=== PATIENT | male | born 1960 | race Caucasian/White ===

== ENCOUNTER 2020-08-08 18:05 | Inpatient (IN) | payer OTHER ==
[~2020-08-08] VITALS: Ht 170.2 cm; Wt 61.0 kg
[2020-08-08] MEDS ORDERED: cefTRIAXone 1 GM in NS 55 ML IV ONE (18:15)
[2020-08-08] MEDS ORDERED: Azithromycin 500 MG in NS 275 ML IVPB ONE (18:15)
--- NOTE | 2020-08-08 18:15 | NUR ---
ED Nurse Note: pt GORGEMeg MARGOTH RA 29 from [facility] for AMS and respiratory distress. 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 SNF staff report that at baseline, pt is responsive to name. pt presents to [facility] agonally breathing with bag mask ventilation by EMS, pt is satting in the 80's, pt is non-responsive to pain, touch or voice, eyes are open and pupils do not track. pt appears to have blood on tongue and inside of mouth visualized during intubation by ERMD. pt has a 24' IV line to L upper arm but it was not flushing so RN removed it. pt has bandages to bilat feet, skin is hot to touch
[2020-08-08] MEDS ORDERED: ALBUTEROL2.5 MG/3 M INH (18:28)
[2020-08-08] MEDS ORDERED: DEPAKOTE SPRIN125 MG PO (18:28)
[2020-08-08] MEDS ORDERED: ACETAMINOPHEN120 MG PO (18:28)
[2020-08-08] MEDS ORDERED: BISACODYL5 MG RECTAL (18:28)
[2020-08-08] MEDS ORDERED: MULTIVITAMINS1 EAC8 ORAL (18:28)
--- NOTE | 2020-08-08 18:53 | Emergency Room Report ---
History of Present Illness General Chief Complaint: Altered Mental Status Source: Medical Record, EMS, PMD Present Illness HPI Patient presents via EMS with respiratory distress. Little history is available. Paramedics assisting ventilations. Patient extremely tachypneic and unresponsive. Patient unable to answer questions. After discussion with patient's primary physician they were attempting to place the patient on hospice care. He has advanced dementia and there are many bioethics consults that were obtained. The POLST still states full treatment. Allergies: Coded Allergies: No Known Allergies (Unverified , 08/08/20) COVID-19 Screening Contact w/high risk pt: No Experienced COVID-19 symptoms?: Yes COVID-19 Testing performed BARGE CAPTAIN: No Patient History Limited by: medical condition Past Medical History: see triage record, old chart reviewed Social History Narrative SNF Reviewed Nursing Documentation: PMH: Agreed; PSxH: Agreed Nursing Documentation-PMH Hx Asthma: Yes History Of Psychiatric Problem: Yes - schizoaffective disorder, Review of Systems All Other Systems: limited Physical Exam Vital Signs Date Time Temp Pulse Resp B/P (MAP) Pulse Ox O2 Delivery O2 Flow Rate FiO2 08/08/20 18:09 97.5 143 16 96/55 (69) 82 Ambu-Bag 08/08/20 18:41 100 Sp02 EP Interpretation: reviewed, abnormal - Interpreted as low by me General Appearance: severe distress, other - Unresponsive Head: normocephalic, atraumatic Eyes: bilateral eye PERRL, bilateral eye other - Left gaze ENT: dry mucus membranes - Old blood on tongue Neck: supple Respiratory: respiratory distress, crackles, rales Cardiovascular #1: no edema, tachycardia Cardiovascular #2: 2+ radial (L) Gastrointestinal: soft, non-distended, decreased bowel sounds Genitourinary: normal inspection Musculoskeletal: decreased range of motion Neurologic: motor weakness - Generalized, other - Unresponsive Psychiatric: other - Stupor Skin: Decubitus/Ulcer - Stage II right gluteal area, warm/dry, mottled Procedures Critical Care Time Critical Care Time Total Critical Care Time: 90 min bedside evaluation and treatment excludes procedures (EKG, intubation). Reason for critical care: Respiratory failure, severe sepsis, discussion with private doctor in admitting physician, repeat evaluations, elevated troponin, hyponatremia, metabolic acidosis Possible complications: hypotension, hypertension, AR, shock, arrhythmias, metabolic acidosis, end organ damage, respiratory failure. Interventions: Intubation, fluid resuscitation, coverage with antibiotics, repeat evaluations, discussion with PMD, discussion with admitting physician Course: Patient presented in respiratory failure. Immediate intubation. Fluid resuscitation and coverage with antibiotics. Discussion with PMD regarding attempts at placement on hospice. Discussion with respiratory therapy regarding ventilator settings and titration of oxygen. Called with positive troponin. Aspirin administered. Patient somewhat hypotensive and unable to receive metoprolol or nitrates. Blood pressure decreased. Patient deemed to be dry. Repeat bolus. Improvement in blood pressure and heart rate. Discussion with admitting physician. Admitting physician examined patient in emergency department. Repeat discussion. Consultations: nursing staff, EMS, respiratory, PMD, admitting physician Performed by: Dr. Mosquera Tolerated well condition = critical Intubation Intubation : Consent: Emergent Intubation Method: orotracheal Tube Size (cm): 7.5 Medications: Other - none Breath Sounds after Intubation: equal Intubation Complications: no complications Post Intubation Xray: Yes Attempts: One Patient Tolerated: Well Complications: None Medical Decision Making Diagnostic Impression: Primary Impression: Respiratory failure Qualified Codes: J96.01 - Acute respiratory failure with hypoxia; J96.02 - Acute respiratory failure with hypercapnia Additional Impressions: NSTEMI (non-ST elevated myocardial infarction) High anion gap metabolic acidosis Hypernatremia Lactic acid acidosis Pneumonia Qualified Codes: J18.9 - Pneumonia, unspecified organism Acute renal failure Qualified Codes: N17.9 - Acute kidney failure, unspecified ER Course Patient presents with respiratory distress. Differential includes severe sepsis, pneumonia, COVID-19, acute myocardial infarction amongst others. Patient required immediate intubation. Patient in extreme distress. Sepsis resuscitation begun. Antibiotics administered for pneumonia and possible COVID- 19. Patient placed on monitoring manager. Isolation precautions. External jugular access. Initial vent settings ordered. Discussed with Dr. Mendez. States patient was supposed to be hospice. He also states that multiple bioethics consults were obtained. However CODE STATUS still full. He had advised retirement staff not to transport the patient but they did. Labs with hypernatremia, low white count with left shift, anemia, acute renal failure, elevated C-reactive protein and other COVID-19 associated laboratory findings. COVID-19 test initially negative. Chest x-ray with appropriate endotracheal tube placement. Bilateral infiltrates. Called with elevated troponin. Aspirin administered. Review of EKG without evidence of STEMI. Patient hypotensive. Repeat bolus administered. Heart rate improved. Antibiotics have been administered. Sepsis reevaluation 1954. Patient with metabolic acidosis. Adequate oxygenation. Discussed with Dr. Silveira. Dr. Silveira examined patient in the emergency department. Patient somewhat improved however prognosis poor. Patient admitted to ICU. Laboratory Tests Test 08/08/20 18:14 08/08/20 18:45 08/08/20 19:00 08/08/20 19:16 Arterial Blood pH 7.166 (7.350-7.450) Arterial Blood Partial Pressure CO2 30.3 mmHg (35.0-45.0) L Arterial Blood Partial Pressure O2 210.8 mmHg (75.0-100.0) H Arterial Blood HCO3 10.7 mmol/L (22.0-26.0) *L Arterial Blood Oxygen Saturation 98.2 % (95-100) Arterial Blood Base Excess -16.5 (-2-2) *L Paxton Test Positive Prothrombin Time 19.5 SEC (9.30-11.50) H Prothrombin Time INR 1.9 (0.9-1.1) H Activated Partial Thromboplast Time 57 SEC (23-33) H Sodium Level 170 MMOL/L (136-145) *H Potassium Level 4.4 MMOL/L (3.5-5.1) Chloride Level 135 MMOL/L (98-107) H Carbon Dioxide Level 15 MMOL/L (21-32) L Anion Gap 20 mmol/L (5-15) H Blood Urea Nitrogen 66 mg/dL (7-18) H Creatinine 3.1 MG/DL (0.55-1.30) H Estimated Glomerular Filtration Rate 20.7 mL/min (>60) Glucose Level 76 MG/DL (74-106) Lactic Acid Level 11.40 mmol/L (0.4-2.0) H Calcium Level 7.6 MG/DL (8.5-10.1) L Magnesium Level 1.9 MG/DL (1.8-2.4) Ferritin 2223 NG/ML (8-388) H Total Bilirubin 2.3 MG/DL (0.2-1.0) H Direct Bilirubin 1.6 MG/DL (0.0-0.3) H Aspartate Amino Transferase (AST) 252 U/L (15-37) H Alanine Aminotransferase (ALT) 49 U/L (12-78) Alkaline Phosphatase 67 U/L (46-116) Lactate Dehydrogenase 404 U/L (81-234) H Total Creatine Kinase 49 U/L (26-308) Creatine Kinase MB 1.8 NG/ML (0.0-3.6) Creatine Kinase MB Relative Index 3.6 Troponin I 0.335 ng/mL (0.000-0.056) 0.337 ng/mL (0.000-0.056) C-Reactive Protein, Quantitative 34.2 mg/dL (0.00-0.90) H Pro-B-Type Natriuretic Peptide 98682 pg/mL (0-125) H Total Protein 4.1 G/DL (6.4-8.2) L Albumin 1.3 G/DL (3.4-5.0) L Globulin 2.8 g/dL Albumin/Globulin Ratio 0.5 (1.0-2.7) L Lipase 155 U/L (73-393) Urine Color Yellow Urine Appearance Cloudy Urine pH 6 (4.5-8.0) Urine Specific Melvin 1.010 (1.005-1.035) Urine Protein 3+ (NEGATIVE) H Urine Glucose (UA) Negative (NEGATIVE) Urine Ketones Negative (NEGATIVE) Urine Blood 4+ (NEGATIVE) H Urine Nitrite Positive (NEGATIVE) H Urine Bilirubin 1+ (NEGATIVE) H Urine Ictotest Positive (NEGATIVE) Urine Urobilinogen 1 MG/DL (0.0-1.0) H Urine Leukocyte Esterase 1+ (NEGATIVE) H Urine RBC 5-10 /HPF (0 - 0) H Urine WBC 0-2 /HPF (0 - 0) Urine Squamous Epithelial Cells None /LPF (NONE/OCC) Urine Bacteria Many /HPF (NONE) H Test 08/08/20 19:17 08/08/20 20:08 08/08/20 20:26 08/08/20 22:59 White Blood Count 4.0 K/UL (4.8-10.8) L Red Blood Count 2.38 M/UL (4.70-6.10) L Hemoglobin 7.4 G/DL (14.2-18.0) L Hematocrit 23.2 % (42.0-52.0) L Mean Corpuscular Volume 97 FL (80-99) Mean Corpuscular Hemoglobin 31.1 PG (27.0-31.0) H Mean Corpuscular Hemoglobin Concent 31.9 G/DL (32.0-36.0) L Red Cell Distribution Width 14.8 % (11.6-14.8) Platelet Count 31 K/UL (150-450) L Mean Platelet Volume FL (6.5-10.1) Neutrophils (%) (Auto) % (45.0-75.0) Lymphocytes (%) (Auto) % (20.0-45.0) Monocytes (%) (Auto) % (1.0-10.0) Eosinophils (%) (Auto) % (0.0-3.0) Basophils (%) (Auto) % (0.0-2.0) Differential Total Cells Counted 100 Neutrophils % (Manual) 77 % (45-75) H Lymphocytes % (Manual) 16 % (20-45) L Monocytes % (Manual) 2 % (1-10) Eosinophils % (Manual) 0 % (0-3) Basophils % (Manual) 0 % (0-2) Band Neutrophils 5 % (0-8) Nucleated Red Blood Cells 2 /100 WBC Platelet Estimate Decreased L Platelet Morphology Normal Polychromasia 1+ Anisocytosis 1+ Macrocytosis 1+ Lactic Acid Level 7.60 mmol/L (0.66-2.22) H Thyroid Stimulating Hormone (TSH) 0.848 uiU/mL (0.358-3.740) POC Whole Blood Glucose 52 MG/DL (74-106) L 96 MG/DL (74-106) Test 08/08/20 23:40 08/09/20 02:45 Lactic Acid Level 6.50 mmol/L (0.4-2.0) H 7.30 mmol/L (0.66-2.22) H Microbiology Date/Time Source Procedure Growth Status 08/08/20 18:53 Nasopharynx SARS-CoV-2 RdRp Gene Assay - Final Complete EKG Diagnostic Results Rate: tachycardiac Rhythm: other - Atrial fibrillation ST Segments: no acute changes - Nonspecific ST-T wave changes Rhythm Strip Diag. Results EP Interpretation: yes Rhythm: no PVC's, no ectopy, other - Sinus tachycardia Chest X-Ray Diagnostic Results Chest X-Ray Diagnostic Results : Chest X-Ray Ordered: Yes # of Views/Limited/Complete: 1 View Indication: Shortness of Breath EP Interpretation: Yes Interpretation: no effusion, no pneumothorax, other - Infiltrates and appropriate placement of endotracheal tube Impression: Other Electronically Signed by: Electronically signed by Darek Mosquera MD Status: improved Disposition: ADMITTED INPATIENT Condition: Critical Referrals: Darek Mendez M.D. (PCP) Darek Mosquera MD Aug 08, 2020 18:53
--- NOTE | 2020-08-08 18:54 | Diagnostic Imaging Report ---
EXAM: XR Chest, 1 View CLINICAL HISTORY: DYSPNEA TECHNIQUE: Frontal view of the chest. COMPARISON: No relevant prior studies available. FINDINGS: Lungs: Probable left medial base mild opacity, which could represent atelectasis or consolidation Pleural space: Left small pleural effusion with passive atelectasis. No pneumothorax. Heart: Unremarkable. No cardiomegaly. Mediastinum: Unremarkable. Bones/joints: No acute abnormality Lymph nodes: Left hilar prominence of uncertain significance, potentially representing pulmonary vascular enlargement or lymphadenopathy. Tubes, lines and devices: ETT 3.2 cm above delmis. IMPRESSION: 1. ETT 3.2 cm above delmis. 2. Left hilar prominence of uncertain significance, potentially representing pulmonary vascular enlargement or lymphadenopathy. 3. Recommend CT chest with IV contrast to further characterize left hilar appearance. 4. Left small pleural effusion with passive atelectasis. 5. Probable left medial base mild opacity, which could represent atelectasis or consolidation
--- NOTE | 2020-08-08 19:05 | NUR ---
ED Nurse Note: Recieved report from RENÉE Hackett. Patient intubated and ventilated, RT at bedside. No acute distress noted upon assessment.
[2020-08-08 19:20] VITALS: BP 96/55
[2020-08-08 19:25] LABS: INR 1.9 (0.9-1.1)
[2020-08-08 19:33] LABS: ALBUMIN 1.3 G/DL (3.4-5.0); ALBUMIN/GLOBULIN RATIO 0.5 (1.0-2.7); BILIRUBIN,TOTAL 2.3 MG/DL (0.2-1.0); CALCIUM 7.6 MG/DL (8.5-10.1); CKMB 1.8 NG/ML (0.0-3.6); CREATININE 3.1 MG/DL (0.55-1.30); POTASSIUM 4.4 MMOL/L (3.5-5.1)
[2020-08-08 19:33] LABS: APPEARANCE,URINE CLOUDY; BILIRUBIN, URINE 1+ (NEGATIVE); GLUCOSE, URINE (UA) NEGATIVE (NEGATIVE); KETONES,URINE NEGATIVE (NEGATIVE); LEUKOCYTE ESTERASE ,URINE 1+ (NEGATIVE); NITRITE,URINE POSITIVE (NEGATIVE); PH,URINE 6 (4.5-8.0); PROTEIN,URINE 3+ (NEGATIVE); UROBILINOGEN,URINE 1 MG/DL (0.0-1.0)
[2020-08-08 19:37] LABS: COLOR,URINE YELLOW
[2020-08-08 19:39] LABS: HEMATOCRIT 23.2 % (42.0-52.0); HEMOGLOBIN 7.4 G/DL (14.2-18.0); MEAN CORPUSCULAR VOLUME 97 FL (80-99); PLATELET COUNT 31 K/UL (150-450); RED BLOOD COUNT 2.38 M/UL (4.70-6.10); RED CELL DISTRIBUTION WIDTH 14.8 % (11.6-14.8)
[2020-08-08 19:44] LABS: BILIRUBIN,DIRECT 1.6 MG/DL (0.0-0.3)
[2020-08-08 19:55] VITALS: BP 81/53
--- NOTE | 2020-08-08 20:05 | History & Physical ---
History of Present Illness General Date patient seen: Aug 08, 2020 Time patient seen: 19:56 Reason for Hospitalization: Altered Mental Status Present Illness HPI 60 M [facility] advanced dementia non-verbal @ baseline BIB EMS after pt was noted with respiratory distress @ SNF. Patient was intubated upon arrival. W/U with significant dehydration, hypernatremia, lactic acidosis, UTI, KURT, PNA and abnormal LFT's. Per my d/w Dr. Mendez, the patients PMD @ SNF, ethics has been involved and patient was transitioning to hospice and ACCESS SPECIALIST. He has not taken any PO for quite some time and a decision had been made not to place a feeding tube or escalate care any further. Allergies: Coded Allergies: No Known Allergies (Unverified , 08/08/20) COVID-19 Screening Contact w/high risk pt: No Experienced COVID-19 symptoms?: Yes Coronavirus symptoms experienc: Shortness of Breath Medication History Scheduled Bisacodyl* (Dulcolax*), 10 MG RECTAL DAILY, (Reported) Divalproex Sodium (Depakote Sprinkle), 500 MG PO BID, (Reported) Multivitamin With Minerals (Multivitamins With Minerals*), 1 TAB ORAL DAILY, (Reported) Scheduled PRN Acetaminophen* (Tylenol*), 650 MG PO Q4H PRN for Mild Pain/Temp > 100.5, (Reported) Albuterol Sulfate* (Albuterol Sulfate Hhn*), 3 ML INH Q4H PRN for Shortness of Breath, (Reported) Patient History Limited by: medical condition History Provided By: Medical Record, PMD Healthcare decision maker Resuscitation status Advanced Directive on File Past Medical/Surgical History Past Medical/Surgical History: (1) Advanced dementia Social History Social History: (1) longterm resident Review of Systems Review of Symptoms Unobtainable 2/2 condition Physical Exam Physical Exam EUGENIO: Non-verbal, dry, male, non-responsive HEENT: Dry MM, crust around eyes, crust on scalp, dry mouth, ETT NECK: Supple, R EJ IV CHEST: Coarse b BS COR: Tachy but regular ABD: S/NT/ND c NABS EXT: No C/C/E, pale cyanotic digits, b ankles wrapped Last 24 Hour Vital Signs Date Time Temp Pulse Resp B/P (MAP) Pulse Ox O2 Delivery O2 Flow Rate FiO2 08/08/20 19:20 124 26 Ambu-Bag 100 08/08/20 19:20 97.5 26 96/55 82 Ambu-Bag 100 08/08/20 18:41 124 26 100 08/08/20 18:09 97.5 143 16 96/55 (69) 82 Ambu-Bag Laboratory Tests Test 08/08/20 18:14 08/08/20 18:45 08/08/20 19:00 08/08/20 19:17 Arterial Blood pH 7.166 (7.350-7.450) Arterial Blood Partial Pressure CO2 30.3 mmHg (35.0-45.0) L Arterial Blood Partial Pressure O2 210.8 mmHg (75.0-100.0) H Arterial Blood HCO3 10.7 mmol/L (22.0-26.0) *L Arterial Blood Oxygen Saturation 98.2 % (95-100) Arterial Blood Base Excess -16.5 (-2-2) *L Paxton Test Positive Prothrombin Time 19.5 SEC (9.30-11.50) H Prothromb Time International Ratio 1.9 (0.9-1.1) H Activated Partial Thromboplast Time 57 SEC (23-33) H Sodium Level 170 MMOL/L (136-145) *H Potassium Level 4.4 MMOL/L (3.5-5.1) Chloride Level 135 MMOL/L (98-107) H Carbon Dioxide Level 15 MMOL/L (21-32) L Anion Gap 20 mmol/L (5-15) H Blood Urea Nitrogen 66 mg/dL (7-18) H Creatinine 3.1 MG/DL (0.55-1.30) H Estimat Glomerular Filtration Rate 20.7 mL/min (>60) Glucose Level 76 MG/DL (74-106) Lactic Acid Level 11.40 mmol/L (0.4-2.0) H Calcium Level 7.6 MG/DL (8.5-10.1) L Magnesium Level 1.9 MG/DL (1.8-2.4) Ferritin 2223 NG/ML (8-388) H Total Bilirubin 2.3 MG/DL (0.2-1.0) H Direct Bilirubin 1.6 MG/DL (0.0-0.3) H Aspartate Amino Transf (AST/SGOT) 252 U/L (15-37) H Alanine Aminotransferase (ALT/SGPT) 49 U/L (12-78) Alkaline Phosphatase 67 U/L (46-116) Lactate Dehydrogenase 404 U/L (81-234) H Total Creatine Kinase 49 U/L (26-308) Creatine Kinase MB 1.8 NG/ML (0.0-3.6) Creatine Kinase MB Relative Index 3.6 Troponin I 0.335 ng/mL (0.000-0.056) C-Reactive Protein, Quantitative Pending Pro-B-Type Natriuretic Peptide 85935 pg/mL (0-125) H Total Protein 4.1 G/DL (6.4-8.2) L Albumin 1.3 G/DL (3.4-5.0) L Globulin 2.8 g/dL Albumin/Globulin Ratio 0.5 (1.0-2.7) L Lipase 155 U/L (73-393) Urine Color Yellow Urine Appearance Cloudy Urine pH 6 (4.5-8.0) Urine Specific [place] 1.010 (1.005-1.035) Urine Protein 3+ (NEGATIVE) H Urine Glucose (UA) Negative (NEGATIVE) Urine Ketones Negative (NEGATIVE) Urine Blood 4+ (NEGATIVE) H Urine Nitrite Positive (NEGATIVE) H Urine Bilirubin 1+ (NEGATIVE) H Urine Ictotest Pending Urine Urobilinogen 1 MG/DL (0.0-1.0) H Urine Leukocyte Esterase 1+ (NEGATIVE) H Urine RBC Pending Urine WBC Pending Urine Squamous Epithelial Cells Pending Urine Bacteria Pending White Blood Count 4.0 K/UL (4.8-10.8) L Red Blood Count 2.38 M/UL (4.70-6.10) L Hemoglobin 7.4 G/DL (14.2-18.0) L Hematocrit 23.2 % (42.0-52.0) L Mean Corpuscular Volume 97 FL (80-99) Mean Corpuscular Hemoglobin 31.1 PG (27.0-31.0) H Mean Corpuscular Hemoglobin Concent 31.9 G/DL (32.0-36.0) L Red Cell Distribution Width 14.8 % (11.6-14.8) Platelet Count 31 K/UL (150-450) L Mean Platelet Volume FL (6.5-10.1) Neutrophils (%) (Auto) % (45.0-75.0) Lymphocytes (%) (Auto) % (20.0-45.0) Monocytes (%) (Auto) % (1.0-10.0) Eosinophils (%) (Auto) % (0.0-3.0) Basophils (%) (Auto) % (0.0-2.0) Neutrophils % (Manual) Pending Lymphocytes % (Manual) Pending Platelet Estimate Pending Platelet Morphology Pending Microbiology Date/Time Source Procedure Growth Status 08/08/20 18:53 Nasopharynx SARS-CoV-2 RdRp Gene Assay - Final Complete Height (Feet): 5 Height (Inches): 7.00 Weight (Pounds): 150 Medications Current Medications Medications (Trade) Dose Ordered Sig/Angelina Route PRN Reason Start Time Stop Time Status Last Admin Dose Admin Sodium Chloride 1,000 ml @ 200 mls/hr Q5H IV 08/08/20 18:15 09/07/20 18:14 08/08/20 19:09 Assessment/Plan Problem List: (1) Failure to thrive SNOMED: 68178305 (2) Wounds, multiple ICD Codes: T07.XXXA - Unspecified multiple injuries, initial encounter SNOMED: 47283524, 294159809 (3) Pancytopenia ICD Codes: D61.818 - Other pancytopenia SNOMED: 492560925 (4) Abnormal LFTs ICD Codes: R94.5 - Abnormal results of liver function studies SNOMED: 501880839 (5) NSTEMI (non-ST elevated myocardial infarction) ICD Codes: I21.4 - Non-ST elevation (NSTEMI) myocardial infarction SNOMED: 33822277 (6) Pneumonia ICD Codes: J18.9 - Pneumonia, unspecified organism SNOMED: 064358434 (7) UTI (urinary tract infection) ICD Codes: N39.0 - Urinary tract infection, site not specified SNOMED: 50891230 (8) High anion gap metabolic acidosis ICD Codes: E87.2 - Acidosis SNOMED: 14642908 (9) Hypernatremia ICD Codes: E87.0 - Hyperosmolality and hypernatremia SNOMED: 305199296 (10) Lactic acid acidosis ICD Codes: E87.2 - Acidosis SNOMED: 44428776 (11) Respiratory failure ICD Codes: J96.90 - Respiratory failure, unspecified, unspecified whether with hypoxia or hypercapnia SNOMED: 642693354 (12) Advanced dementia ICD Codes: F03.90 - Unspecified dementia without behavioral disturbance SNOMED: 74950935 Status Narrative Admit to ICU Continue ventilatory support Vent settings adjusted Abx: Vancomycin/Zosyn, F/U CX's, ID eval IVF: D5W@150 Trend trops DVT Px: Hep SQ Monitor volumes and renal function Renal eval Wound care No escalation of care, no central line, no pressors, DNAR, if unable to extubate next few days will consider palliative extubation based on previous plan and medical futility CCT 60 Case D/W PCP Dr. Darek Mendez and ER MD Dr. Mosquera [facility] Hospital declaration INPATIENT level of care is warranted for this patient because patient is a 89 year old with who presents with suspicion of . I have a high level of concern because . Patient is at high risk for . Plan of care/treatment include . Patient care is expected to be greater than 2 midnights. OBSERVATION level of care is warranted for this patient. Patient is a 89 year old with who presents with . Patient will be admitted for 1 midnight, but if additional night(s) is/are necessary, patient will be converted to inpatient status for the entire hospitalization Disposition: Once the patient is stable to leave the hospital, I anticipate the patient will likely be discharged to the following environment: Estimated discharge date: I spent 70 minutes on this patient's case, and minutes was dedicated to counseling and/or care coordination. MIPS ([employer]it-based Incentive Payment System) Applicable CPT: 17415, 74306 CHECK ALL THAT ARE MET: Measure #5 (CHF): All ages. Prescribe SAMANTHA/ARB upon discharge for patients with left ventricular systolic dysfunction. If not, the reason is clearly documented in the medical chart. Measure #8 (CHF): All ages. Prescribe a beta radha upon discharge for patients with left ventricular systolic dysfunction. If not, the reason is clearly documented in the medical chart. Measure #47 Advance care plan or surrogate decision maker documented in the medical record. Measure #130 The provider has documented, updated, or reviewed the patients current medication list and has documented it in the patients note. Measure #374 (All): Send report to referring provider. Measure #407(Sepsis due to MSSA bacteremia): Age 18+ Patient treated with a beta-lactam antibiotic (Nafcillin, Oxacillin or Cefazolin) as definitive therapy. MEDICAL COMPLEXITY High complexity medical decision making (need 2/3 categories) Problem - need 4 points Acute/new problem with new plan for workup (4 points, 1 max) Acute/new problem without additional workup (3 points, 1 max) Unstable chronic problem actively being managed (2 point each, 2 max) Stable chronic problem actively being managed (1 point each, 2 max) Self-limited/transient process (constipation, muscle ache, etc) (1 point each, 2 max) Data - need 4 points Reviewed labs/imaging studies (1 points, 2 max) Independent review of imaging (EKG, xrays, etc) (2 points, 2 max) Discussed case with consult/other MD/RN (2 points, 2 max) High Risk - qualify if have one of the following: Severe exacerbation of acute problem, acute mental status change, IV narcotics, monitoring drug levels (vancomycin, INR, tacrolimus etc) Lb Silveira MD Aug 08, 2020 20:05
--- NOTE | 2020-08-08 20:11 | NUR ---
ED Nurse Note: Lactic reflex collected and sent to lab
--- NOTE | 2020-08-08 20:44 | NUR ---
ED Nurse Note: RT at bedside, per RT will be titrating FiO2 to 80%
--- NOTE | 2020-08-08 21:05 | NUR ---
ED Nurse Note: Ultrasound at bedside
--- NOTE | 2020-08-08 21:21 | NUR ---
ED Nurse Note: MRSA, VRE, CRE swabs collected and sent to lab, troponin collected and sent to lab.
--- NOTE | 2020-08-08 21:29 | Diagnostic Imaging Report ---
EXAM: US Abdomen Complete CLINICAL HISTORY: ABN LABS TECHNIQUE: Real-time ultrasound of the abdomen with image documentation. COMPARISON: No relevant prior studies available. FINDINGS: Liver: Liver 16 cm No intrahepatic bile duct dilation. Gallbladder: Gallbladder sludge and stones, distention, and pericholecystic fluid, or mild wall thickening; correlate with presentation to exclude acute cholecystitis. Common bile duct: Unremarkable as visualized. No stones. No dilation. Pancreas: Unremarkable as visualized. Kidneys: Left kidney 10.3 cm Right kidney 10.2 cm No stones. No hydronephrosis. Spleen: Unremarkable. No splenomegaly. 8 cm Aorta: Aorta 2 cm No aneurysm. Inferior vena cava: Unremarkable. Free fluid: Ascites. Pleural space: Bilateral pleural effusions. Other findings: GB wall 0.1-04 cm, measurement felt to be spuriously. IMPRESSION: 1. Gallbladder sludge and stones, distention, and pericholecystic fluid, or mild wall thickening; correlate with presentation to exclude acute cholecystitis. 2. Bilateral pleural effusions. Ascites. 3. Otherwise no acute abnormality to explain patient presentation. 4. If there is further concern, recommend CT with IV contrast.
[2020-08-08] MEDS ORDERED: Heparin 5000 units/ml inj SUBQ SCH (22:00)
--- NOTE | 2020-08-08 22:45 | NUR ---
NURSE NOTES: Received report from [employer]. Pt is obtunded, not following commands, not opening eyes reported Pt is orally intubated, ETT 7.5, Vent settings: AC 18, TV 500, PEEP 5, FiO2 80% reported Pt is NPO. Hodge catheter inserted and draining minimal urine to urometer reported. Skin wounds sacral DTI, left elbow DTI and right arm ecchymosis reported. PIV EJ 18G reported. Pt is running NS bolus. Room #D is ready to accept pt.
--- NOTE | 2020-08-08 23:00 | NUR ---
TRANSFER TO FLOOR: Patient transferred to ICU as ordered, per ERMD. Report given to RENÉE Puri. Patient has no belongings. Patient transported via gurney on ACLS protocol with radiation monitor in stable condition. Patient accompanied by RN, RT and electrical service technician.
[2020-08-08 23:15] VITALS: BP 61/35
[2020-08-08 23:30] VITALS: BP 77/33
--- NOTE | 2020-08-08 23:30 | NUR ---
NURSE NOTES: Pt arrived ICU from ED with 1 RT, 1RN and 1tech. Pt is obtunded, not following commands, not opening eyes. Pt is orally intubated, ETT 7.5, Vent settings: AC 18, TV 500, PEEP 5, FiO2 80%. Pt temp 96.7 and not possible to read O2 sat. Mary hugger provided. Pt is NPO. Hodge catheter noted, patent and draining minimal urine to urometer. Skin wounds sacral DTI, left elbow DTI and right arm ecchymosis noted. Dressing is CDI. PIV EJ 18G noted and CDI Pt is running NS bolus noted. Safe measures observed and no acute distress noted. EWill continur to monitor.
[2020-08-08 23:45] VITALS: BP 56/40
[2020-08-09] VITALS (38 sets, daily range): BP systolic 38–84; BP diastolic 11–63
[2020-08-09] MEDS ORDERED: Vancomycin 1gm in D5W 275ml IVPB SCH ×2
--- NOTE | 2020-08-09 | NUR ---
NURSE NOTES: Received order from Dr. Silveira. NS 1000mL bolus and Pt is running D5W @ 150mL/hr and NS @ 200mL/hr. Albumin 25% q6h given for hypotension. AM care provided. Large amount of BM noted. Soiled gowns, linens, and slider were all changed. Turned and repositioned. Oral care and face care provided. Mary Hugger provided. BRODERICK and mason are CDI. Will continue to monitor.
[2020-08-09] MEDS: Albuterol/Ipratropium 3ml neb HHN SCH ×2 (00:55→07:27)
[2020-08-09] MEDS: Piperacillin/Tazobactam 3.375 GM in NS 110 ML IVPB SCH ×2 (01:11→08:23)
--- NOTE | 2020-08-09 02:00 | NUR ---
NURSE NOTES: Pt remains obtunded, not following commands, not opening eyes. Pt remains orally intubated, ETT 7.5, Vent settings: AC 18, TV 500, PEEP 5, FiO2 80%. Mary hugger kept going. Pt remains NPO. Hodge and PIV EJ 18G noted and CDI Pt is running D5W @ 150mL/hr and NS @ 200mL/hr. IV abx ordered and given. Will continue to monitor.
[2020-08-09 05:45] LABS: HEMATOCRIT 25.5 % (42.0-52.0); HEMOGLOBIN 8.3 G/DL (14.2-18.0); MEAN CORPUSCULAR VOLUME 96 FL (80-99); PLATELET COUNT 17 K/UL (150-450); RED BLOOD COUNT 2.67 M/UL (4.70-6.10); RED CELL DISTRIBUTION WIDTH 14.4 % (11.6-14.8); WHITE BLOOD COUNT 3.9 K/UL (4.8-10.8)
[2020-08-09 06:09] LABS: ALBUMIN 0.7 G/DL (3.4-5.0); ALBUMIN/GLOBULIN RATIO 0.5 (1.0-2.7); BILIRUBIN,TOTAL 1.4 MG/DL (0.2-1.0); CREATININE 2.7 MG/DL (0.55-1.30); POTASSIUM 3.2 MMOL/L (3.5-5.1)
[2020-08-09 06:38] LABS: BILIRUBIN,DIRECT 1.1 MG/DL (0.0-0.3)
--- NOTE | 2020-08-09 07:19 | Pulmonolgy Critical Care Note ---
Diana Vera HEALTH SAFETY INSTRUCTOR 08/09/20 0719: Critical Care - Asmt/Plan Assessment/Plan: ASSESSMENT sepsis with shock acute hypoxemic respiratory failure requiring intubation Possible PNA KURT Hypernatremia Elevated troponin, possible NSTEMI Advanced dementia Pancytopenia Elevated LFT Electrolyte imbalance PLAN OF CARE ICU ventilatory support, pulm toilet fup with ABG this am and adjust settings as needed fup with CXR Abx: Vancomycin/Zosyn, F/U CX's, ID eval IVF: D5W@150 trend troponin DVT Px: Hep SQ monitor volumes and renal function nephro eval pending correct electrolytes as needed -per nephro recs lactic acid with small trend down, remains elevated abd US noted : Gallbladder sludge and stones, distention, and pericholecystic fluid, or mild wall thickening trend LFT GI prophylaxis monitor counts pancytopenic , cause unclear wound care No escalation of care, no central line, no pressors, DNAR, if unable to extubate in the next few days ->will consider palliative extubation based on previous plan and medical futility case discussed and evaluated by supervising physician Critical Care - Objective Last 24 Hour Vital Signs Date Time Temp Pulse Resp B/P (MAP) Pulse Ox O2 Delivery O2 Flow Rate FiO2 08/09/20 04:00 97 25 67/45 (52) 08/09/20 03:45 97 26 66/46 (53) 08/09/20 03:30 96 25 67/49 (55) 08/09/20 03:15 105 26 65/39 (48) 08/09/20 03:14 97 27 80 08/09/20 03:00 102 26 69/41 (50) 69 08/09/20 02:45 96 25 73/50 (58) 08/09/20 02:30 96 26 82/63 (69) 08/09/20 02:15 93 24 71/51 (58) 08/09/20 02:00 91 24 77/58 (64) 08/09/20 01:45 92 25 80/56 (64) 08/09/20 01:30 91 25 70/52 (58) 08/09/20 01:15 92 24 69/51 (57) 08/09/20 01:00 93 23 65/46 (52) 08/09/20 00:55 92 25 98 Mechanical Ventilator 80 92 23 80 08/09/20 00:45 90 23 69/48 (55) 08/09/20 00:30 88 23 68/53 (58) 08/09/20 00:15 93 24 64/50 (55) 08/09/20 00:00 94 23 60/43 (49) 08/08/20 23:45 96 23 56/40 (45) 08/08/20 23:30 103 23 77/33 (48) 08/08/20 23:23 101 27 80 08/08/20 23:15 96.7 103 23 61/35 (44) 08/08/20 23:00 Ambu-bag 08/08/20 23:00 99 24 68/41 94 Mechanical Ventilator 15.0 80 08/08/20 19:55 110 27 81/53 98 Mechanical Ventilator 15.0 100 08/08/20 19:20 124 26 Ambu-Bag 100 08/08/20 19:20 97.5 26 96/55 82 Ambu-Bag 100 08/08/20 18:41 124 26 100 08/08/20 18:09 97.5 143 16 96/55 (69) 82 Ambu-Bag Objective: GEN: Non-verbal, male, non-responsive Lines: R EJ HEENT: Dry MM, crust around eyes, crust on scalp, dry mouth, ETT in place, intact NECK: Supple CHEST: Coarse BL BS COR: Tachy , but regular ABD: S/NT/ND c NABS EXT: No C/C/E, pale cyanotic digits, B ankles wrapped, + 1 edema BL hands Micro: Microbiology Date/Time Source Procedure Growth Status 08/08/20 19:00 Urine,Clean Catch Urine Culture - Preliminary NO GROWTH Resulted 08/08/20 18:53 Nasopharynx SARS-CoV-2 RdRp Gene Assay - Final Complete Accucheck: 96 Critical Care - Subjective ROS Limited/Unobtainable: Yes Interval Events: intubated, hypotensive, tachypneic, low tachycardic pancytopenia Tram and creat with small trend down Condition: critical IV Access: central EKG Rhythm: Sinus Tachycardia FI02: 80 Vent Support Breath Rate: 18 Vent Support Mode: AC Vent Tidal Volume: 550 Sputum Amount: Small PEEP: 5.0 PIP: 23 Fluids: D5 W at 150 I&O: Intake and Output 08/08/20 08/09/20 19:00 07:00 Intake Total 3112.5 ml Balance 3112.5 ml Intake Oral 0 ml IV Total 3112.5 ml CXR: CXR 101/6 1. ETT 3.2 cm above delmis. 2. Left hilar prominence of uncertain significance, potentially representing pulmonary vascular enlargement or lymphadenopathy. 3. Recommend CT chest with IV contrast to further characterize left hilar appearance. 4. Left small pleural effusion with passive atelectasis. 5. Probable left medial base mild opacity, which could represent atelectasis or consolidation Lb Silveira MD 08/09/20 1351: Critical Care - Asmt/Plan Assessment/Plan: Patient seen and examined with HEALTH SAFETY INSTRUCTOR. Agree with above A&P as it reflects our joint deliberations. Patient has since . PMD notified. Diana Vera NP Aug 09, 2020 07:19 Lb Silviera MD Aug 09, 2020 13:51
--- NOTE | 2020-08-09 07:30 | NUR ---
HAND-OFF: Report given to RENÉE Mao. Endorsed POC.
--- NOTE | 2020-08-09 07:40 | NUR ---
NURSE NOTES: Report received from RENÉE Puri. Pt noted to be obtunded, laying supine with his eyes closed, not following commands, not opening eyes at this time. Pt is orally intubated, ETT 7.5, Vent settings: AC 18, TV 500, PEEP 5, FiO2 80%. Pt has poor tissue perfusion causing O2sat monitor to be unreadable at times. Pulse ox changed a number of times. Pt noted to be tachypneic and taking labored breathes. Pt is currently NPO. Hodge catheter noted, patent and draining minimal urine to urometer. Skin wounds noted, dressings clean dry and intact; wound consult ordered and pictures uploaded. PIV EJ #18g noted and patent, running D5W @ 150mL/hr and NS @ 200mL/hr. Diana Vera NP, made her rounds and assessed pt. She is aware of pt's labs, no new orders given at this time. Bed locked and in lowest position with call light within reach. Will resume plan of care.
--- NOTE | 2020-08-09 07:45 | NUR ---
RESPIRATORY NOTE: Pt received intubated with 7.5 ETT 22 @ lip. Pt is mechanically ventilated on AC 16, 500, +5, 80% Fio2. HR 105. Pt is currently satting low 90s on current settings. ABG to be drawn. Sxn small amount of clear white thick secretions. Pt is obtunded. Ambu bag at bedside. Pt is DNR. Vent is plugged into red outlet. Alarms are on and audible. Will continue to monitor and follow plan of care.
--- NOTE | 2020-08-09 08:40 | NUR ---
RESPIRATORY NOTE: Pt desaturated to low 60s. Increased Fio2 to 100%. RN Daylin at bedside. ABG to be drawn.
[2020-08-09] MEDS ORDERED: Pantoprazole Inj IVP SCH (09:00)
--- NOTE | 2020-08-09 09:00 | NUR ---
NURSE NOTES: Diana Vera NP was given lab values: Potassium 3.2, Platelets 17, Calcium 6.0. NS maintenance fluid D/C'd. Awaiting Dr Holliday to come on the unit to assess pt.
--- NOTE | 2020-08-09 09:05 | NUR ---
RESPIRATORY NOTE: Increased RR to 20 per MD order post ABG. Daylin CHINCHILLA aware. Will continue to monitor.
--- NOTE | 2020-08-09 10:36 | NUR ---
RD ASSESSMENT & RECOMMENDATIONS SEE CARE ACTIVITY FOR COMPLETE ASSESSMENT DAILY ESTIMATED NEEDS: Needs based on critical care, wound/ 68kg 22-28 kcals/kg 7957-9295 total kcals 1.25-2 g protein/kg 85-136 g total protein 25-30 mL/kg 5923-8116 total fluid mLs NUTRITION DIAGNOSIS: Swallowing difficulty R/T respiratory failure as evidenced by pt orally intubated, NPO, hypotensive. CURRENT DIET:npo ENTERAL NUTRITION RECOMMENDATIONS: IF TF PART OF POC AND HD STABLE: Vital AF 1.2 @ 50ml/hr x 24 hrs to provide 1200ml, 1440kcal, 90g prot, 981ml free water * IF TF PART OF POC AND HEMODYNAMICALLY STABLE: -> Rec Vital AF 1.2 @ goal of 50ml/hr x 24 hrs -> initiate SLOWLY @ 10ml/hr x 6hrs, advance 10ml q 4-6 hrs as shayan to goal -> HOB over 30 degrees/ water flush per MD --------- Without hemodynamic stablity and able to keep HOB >30 degrees, rec trophic feeding of Vital AF 1.2 @ 10ml/hr if TF part of POC ADDITIONAL RECOMMENDATIONS: * Monitor POC: comfort measures, DNR/DNI at this time TF w/ hemodynamic stability? * Calibrated bedscale wt * Monitor lytes, replete as needed * Wound care: w/ GI access, MVI x1, Vit C 500mg QD, ZnSO4 220mg QD x 10days
--- NOTE | 2020-08-09 10:36 | NUR ---
NURSE NOTES: 2 phlebotomists, Rey and Myra, both attempted to collect blood for ordered labs but were unsuccessful. Food Preparer also attempted to get blood from pt but was unsuccessful.
--- NOTE | 2020-08-09 11:00 | NUR ---
NURSE NOTES: Dr Holliday on the unit assessing pt. Updated him on pt's current condition. Informed him of unsuccessful blood draws. No new orders given at this time.
[2020-08-09 11:03] LABS: PHOSPHORUS 4.3 MG/DL (2.5-4.9)
--- NOTE | 2020-08-09 11:13 | Consultation ---
Consult Note Consult Note I am asked to evaluate the patient at the request of Dr. Silveira for renal failure and electrolyte imbalances. Patient seen in room D at intensive care unit. Discussed with RENÉE Mao. It appears that the patient is now DNR and DNI even though the patient is intubated. Patient is not to be on any IV fluid and pressors. Patient examined. Data reviewed. Patient currently intubated on ventilator. Patient is hypotensive. Emergency room note: Patient presents via EMS with respiratory distress. Little history is available. Paramedics assisting ventilations. Patient extremely tachypneic and unresponsive. Patient unable to answer questions. After discussion with patient's primary physician they were attempting to place the patient on hospice care. He has advanced dementia and there are many bioethics consults that were obtained. The POLST still states full treatment. Allergies: No Known Allergies (Unverified , 08/08/20) COVID-19 Screening Contact w/high risk pt: No Experienced COVID-19 symptoms?: Yes COVID-19 Testing performed SAP FUNCTIONAL ANALYST: No Hx Asthma: Yes History Of Psychiatric Problem: Yes - schizoaffective disorder, EUGENIO: Non-verbal, dry, male, non-responsive HEENT: Dry MM, crust around eyes, crust on scalp, dry mouth, ETT NECK: Supple, R EJ IV CHEST: Coarse b BS COR: Tachy but regular ABD: S/NT/ND c NABS EXT: No C/C/E, pale cyanotic digits, b ankles wrapped . Assessment/Plan KURT sepsis with shock acute hypoxemic respiratory failure requiring intubation Possible PNA Hypernatremia Elevated troponin, possible NSTEMI Advanced dementia Pancytopenia Elevated LFT Electrolyte imbalance Discussed with RENÉE Mao Patient not to be on pressors Continue D5W No NG tube, no stable IV lines. Patient intubated however at this point he is DNR/DNI. Aim it is comfort care. Not much to add from renal standpoint of view. Jay Holliday MD Aug 09, 2020 11:13
[2020-08-09] MEDS ORDERED: Tubing IV Secondary IV ONE (11:29)
[2020-08-09] MEDS ORDERED: NS 275ml ONE (11:29)
--- NOTE | 2020-08-09 11:45 | NUR ---
NURSE NOTES: Pt DNR, found satellite project site monitor alarming asystole, no pulse upon palpation, no B/P. Pt and ER MD pronounced at 11:30AM.
--- NOTE | 2020-08-09 11:50 | NUR ---
NURSE NOTES: Dr Silveira and Diana Vera, DEX made aware that pt . [employer] called. Emergency contact not answering telephone x2 attempts.
--- NOTE | 2020-08-09 11:52 | Consultation ---
History of Present Illness General Date patient seen: Aug 09, 2020 Chief Complaint: Altered Mental Status Present Illness Allergies: Coded Allergies: No Known Allergies (Unverified , 08/08/20) Medication History Scheduled Bisacodyl* (Dulcolax*), 10 MG RECTAL DAILY, (Reported) Divalproex Sodium (Depakote Sprinkle), 500 MG PO BID, (Reported) Multivitamin With Minerals (Multivitamins With Minerals*), 1 TAB ORAL DAILY, (Reported) Scheduled PRN Acetaminophen* (Tylenol*), 650 MG PO Q4H PRN for Mild Pain/Temp > 100.5, (Reported) Albuterol Sulfate* (Albuterol Sulfate Hhn*), 3 ML INH Q4H PRN for Shortness of Breath, (Reported) Patient History Limited by: medical condition History Provided By: Medical Record, PMD Healthcare decision maker Resuscitation status Advanced Directive on File Past Medical/Surgical History Past Medical/Surgical History: (1) Advanced dementia (2) Failure to thrive (3) Wounds, multiple (4) Pancytopenia (5) UTI (urinary tract infection) (6) Abnormal LFTs (7) Sepsis (8) Acute renal failure (9) Hypernatremia (10) Respiratory failure (11) Pneumonia (12) Lactic acid acidosis (13) NSTEMI (non-ST elevated myocardial infarction) (14) High anion gap metabolic acidosis Review of Systems All Other Systems: negative except mentioned in HPI ROS Narrative unable to obtain given medical condition Physical Exam General Appearance: severe distress, other Lines, tubes and drains: central line, endotracheal tube, ngt HEENT: normocephalic, atraumatic, anicteric Neck: supple, normal inspection, other Respiratory/Chest: respiratory distress, decreased breath sounds, accessory muscle use, on vent Cardiovascular/Chest: irregularly irregular, other Abdomen: soft, no organomegaly, no mass, hypoactive bowel sounds Genitourinary/Rectal: cuevas Extremities: inflammation, slow capillary refill Skin Exam: warm/dry Neurologic: unresponsiveness Last 24 Hour Vital Signs Date Time Temp Pulse Resp B/P (MAP) Pulse Ox O2 Delivery O2 Flow Rate FiO2 08/09/20 10:45 91 26 100 08/09/20 10:45 91 21 44/29 (34) 60 08/09/20 10:30 96 21 47/20 (29) 60 08/09/20 10:15 94 22 39/24 (29) 60 08/09/20 10:00 96 23 51/11 (24) 60 08/09/20 09:45 99 25 45/31 (36) 60 08/09/20 09:30 100 26 39/22 (28) 60 08/09/20 09:00 102 26 48/24 (32) 63 08/09/20 08:40 100 08/09/20 08:30 105 27 51/37 (42) 67 08/09/20 08:30 100 08/09/20 08:15 104 29 56/29 (38) 69 08/09/20 08:00 100.0 103 28 84/48 (60) 71 08/09/20 08:00 Mechanical Ventilator 08/09/20 08:00 80 08/09/20 08:00 104 08/09/20 07:45 103 28 51/29 (36) 71 08/09/20 07:37 105 29 95 Mechanical Ventilator 80 103 27 80 08/09/20 07:30 102 24 53/37 (42) 08/09/20 07:15 102 27 58/34 (42) 08/09/20 07:00 101 27 56/34 (41) 08/09/20 07:00 101 27 56/34 (41) 08/09/20 06:30 102 27 08/09/20 06:30 102 27 59/35 (43) 08/09/20 06:00 102 26 64/37 (46) 08/09/20 05:30 104 27 66/39 (48) 08/09/20 05:00 99 26 66/48 (54) 08/09/20 04:30 106 27 64/42 (49) 08/09/20 04:00 97 25 67/45 (52) 08/09/20 03:45 97 26 66/46 (53) 08/09/20 03:30 96 25 67/49 (55) 08/09/20 03:14 97 27 80 08/09/20 03:00 102 26 69/41 (50) 69 08/09/20 02:45 96 25 73/50 (58) 08/09/20 02:30 96 26 82/63 (69) 08/09/20 02:15 93 24 71/51 (58) 08/09/20 02:00 91 24 77/58 (64) 08/09/20 01:45 92 25 80/56 (64) 08/09/20 01:30 91 25 70/52 (58) 08/09/20 01:15 92 24 69/51 (57) 08/09/20 01:00 93 23 65/46 (52) 08/09/20 00:55 92 25 98 Mechanical Ventilator 80 92 23 80 08/09/20 00:45 90 23 69/48 (55) 08/09/20 00:30 88 23 68/53 (58) 08/09/20 00:15 93 24 64/50 (55) 08/09/20 00:00 94 23 60/43 (49) 08/08/20 23:45 96 23 56/40 (45) 08/08/20 23:30 103 23 77/33 (48) 08/08/20 23:23 101 27 80 08/08/20 23:15 96.7 103 23 61/35 (44) 08/08/20 23:00 Ambu-bag 08/08/20 23:00 99 24 68/41 94 Mechanical Ventilator 15.0 80 08/08/20 19:55 110 27 81/53 98 Mechanical Ventilator 15.0 100 08/08/20 19:20 124 26 Ambu-Bag 100 08/08/20 19:20 97.5 26 96/55 82 Ambu-Bag 100 08/08/20 18:41 124 26 100 08/08/20 18:09 97.5 143 16 96/55 (69) 82 Ambu-Bag Intake and Output 08/08/20 08/09/20 19:00 07:00 Intake Total 3907.5 ml Balance 3907.5 ml Intake Oral 0 ml IV Total 3907.5 ml Laboratory Tests Test 08/08/20 18:14 08/08/20 18:45 08/08/20 19:00 08/08/20 19:16 Arterial Blood pH 7.166 (7.350-7.450) Arterial Blood Partial Pressure CO2 30.3 mmHg (35.0-45.0) L Arterial Blood Partial Pressure O2 210.8 mmHg (75.0-100.0) H Arterial Blood HCO3 10.7 mmol/L (22.0-26.0) *L Arterial Blood Oxygen Saturation 98.2 % (95-100) Arterial Blood Base Excess -16.5 (-2-2) *L Paxton Test Positive Prothrombin Time 19.5 SEC (9.30-11.50) H Prothromb Time International Ratio 1.9 (0.9-1.1) H Activated Partial Thromboplast Time 57 SEC (23-33) H Sodium Level 170 MMOL/L (136-145) *H Potassium Level 4.4 MMOL/L (3.5-5.1) Chloride Level 135 MMOL/L (98-107) H Carbon Dioxide Level 15 MMOL/L (21-32) L Anion Gap 20 mmol/L (5-15) H Blood Urea Nitrogen 66 mg/dL (7-18) H Creatinine 3.1 MG/DL (0.55-1.30) H Estimat Glomerular Filtration Rate 20.7 mL/min (>60) Glucose Level 76 MG/DL (74-106) Lactic Acid Level 11.40 mmol/L (0.4-2.0) H Calcium Level 7.6 MG/DL (8.5-10.1) L Magnesium Level 1.9 MG/DL (1.8-2.4) Ferritin 2223 NG/ML (8-388) H Total Bilirubin 2.3 MG/DL (0.2-1.0) H Direct Bilirubin 1.6 MG/DL (0.0-0.3) H Aspartate Amino Transf (AST/SGOT) 252 U/L (15-37) H Alanine Aminotransferase (ALT/SGPT) 49 U/L (12-78) Alkaline Phosphatase 67 U/L (46-116) Lactate Dehydrogenase 404 U/L (81-234) H Total Creatine Kinase 49 U/L (26-308) Creatine Kinase MB 1.8 NG/ML (0.0-3.6) Creatine Kinase MB Relative Index 3.6 Troponin I 0.335 ng/mL (0.000-0.056) 0.337 ng/mL (0.000-0.056) C-Reactive Protein, Quantitative 34.2 mg/dL (0.00-0.90) H Pro-B-Type Natriuretic Peptide 57275 pg/mL (0-125) H Total Protein 4.1 G/DL (6.4-8.2) L Albumin 1.3 G/DL (3.4-5.0) L Globulin 2.8 g/dL Albumin/Globulin Ratio 0.5 (1.0-2.7) L Lipase 155 U/L (73-393) Urine Color Yellow Urine Appearance Cloudy Urine pH 6 (4.5-8.0) Urine Specific [place] 1.010 (1.005-1.035) Urine Protein 3+ (NEGATIVE) H Urine Glucose (UA) Negative (NEGATIVE) Urine Ketones Negative (NEGATIVE) Urine Blood 4+ (NEGATIVE) H Urine Nitrite Positive (NEGATIVE) H Urine Bilirubin 1+ (NEGATIVE) H Urine Ictotest Positive (NEGATIVE) Urine Urobilinogen 1 MG/DL (0.0-1.0) H Urine Leukocyte Esterase 1+ (NEGATIVE) H Urine RBC 5-10 /HPF (0 - 0) H Urine WBC 0-2 /HPF (0 - 0) Urine Squamous Epithelial Cells None /LPF (NONE/OCC) Urine Bacteria Many /HPF (NONE) H Test 08/08/20 19:17 08/08/20 20:08 08/08/20 20:26 08/08/20 22:59 White Blood Count 4.0 K/UL (4.8-10.8) L Red Blood Count 2.38 M/UL (4.70-6.10) L Hemoglobin 7.4 G/DL (14.2-18.0) L Hematocrit 23.2 % (42.0-52.0) L Mean Corpuscular Volume 97 FL (80-99) Mean Corpuscular Hemoglobin 31.1 PG (27.0-31.0) H Mean Corpuscular Hemoglobin Concent 31.9 G/DL (32.0-36.0) L Red Cell Distribution Width 14.8 % (11.6-14.8) Platelet Count 31 K/UL (150-450) L Mean Platelet Volume FL (6.5-10.1) Neutrophils (%) (Auto) % (45.0-75.0) Lymphocytes (%) (Auto) % (20.0-45.0) Monocytes (%) (Auto) % (1.0-10.0) Eosinophils (%) (Auto) % (0.0-3.0) Basophils (%) (Auto) % (0.0-2.0) Differential Total Cells Counted 100 Neutrophils % (Manual) 77 % (45-75) H Lymphocytes % (Manual) 16 % (20-45) L Monocytes % (Manual) 2 % (1-10) Eosinophils % (Manual) 0 % (0-3) Basophils % (Manual) 0 % (0-2) Band Neutrophils 5 % (0-8) Nucleated Red Blood Cells 2 /100 WBC Platelet Estimate Decreased L Platelet Morphology Normal Polychromasia 1+ Anisocytosis 1+ Macrocytosis 1+ Lactic Acid Level 7.60 mmol/L (0.66-2.22) H Thyroid Stimulating Hormone (TSH) 0.848 uiU/mL (0.358-3.740) POC Whole Blood Glucose 52 MG/DL (74-106) L 96 MG/DL (74-106) Test 08/08/20 23:40 08/09/20 02:45 08/09/20 05:30 08/09/20 08:39 Lactic Acid Level 6.50 mmol/L (0.4-2.0) H 7.30 mmol/L (0.66-2.22) H White Blood Count 3.9 K/UL (4.8-10.8) L Red Blood Count 2.67 M/UL (4.70-6.10) L Hemoglobin 8.3 G/DL (14.2-18.0) L Hematocrit 25.5 % (42.0-52.0) L Mean Corpuscular Volume 96 FL (80-99) Mean Corpuscular Hemoglobin 31.1 PG (27.0-31.0) H Mean Corpuscular Hemoglobin Concent 32.6 G/DL (32.0-36.0) Red Cell Distribution Width 14.4 % (11.6-14.8) Platelet Count 17 K/UL (150-450) L Mean Platelet Volume 16.2 FL (6.5-10.1) H Neutrophils (%) (Auto) % (45.0-75.0) Lymphocytes (%) (Auto) % (20.0-45.0) Monocytes (%) (Auto) % (1.0-10.0) Eosinophils (%) (Auto) % (0.0-3.0) Basophils (%) (Auto) % (0.0-2.0) Differential Total Cells Counted 100 Neutrophils % (Manual) 53 % (45-75) Lymphocytes % (Manual) 35 % (20-45) Monocytes % (Manual) 4 % (1-10) Eosinophils % (Manual) 0 % (0-3) Basophils % (Manual) 0 % (0-2) Band Neutrophils 8 % (0-8) Platelet Estimate Decreased L Platelet Morphology Giant Platelets Occasional Hypochromasia 1+ Anisocytosis 1+ Sodium Level 164 MMOL/L (136-145) *H Potassium Level 3.2 MMOL/L (3.5-5.1) L Chloride Level 134 MMOL/L (98-107) H Carbon Dioxide Level 11 MMOL/L (21-32) L Anion Gap 20 mmol/L (5-15) H Blood Urea Nitrogen 63 mg/dL (7-18) H Creatinine 2.7 MG/DL (0.55-1.30) H Estimat Glomerular Filtration Rate 24.2 mL/min (>60) Glucose Level 162 MG/DL (74-106) H Calcium Level 6.0 MG/DL (8.5-10.1) #L Total Bilirubin 1.4 MG/DL (0.2-1.0) H Direct Bilirubin 1.1 MG/DL (0.0-0.3) H Aspartate Amino Transf (AST/SGOT) 271 U/L (15-37) H Alanine Aminotransferase (ALT/SGPT) 45 U/L (12-78) Alkaline Phosphatase 26 U/L (46-116) L Total Protein 2.1 G/DL (6.4-8.2) #L Albumin < 0.6 G/DL (3.4-5.0) L Globulin 1.4 g/dL Albumin/Globulin Ratio 0.5 (1.0-2.7) L Arterial Blood pH 7.030 (7.350-7.450) Arterial Blood Partial Pressure CO2 52.5 mmHg (35.0-45.0) H Arterial Blood Partial Pressure O2 20.7 mmHg (75.0-100.0) Arterial Blood HCO3 13.6 mmol/L (22.0-26.0) *L Arterial Blood Oxygen Saturation 26.1 % (95-100) *L Arterial Blood Base Excess -16.2 (-2-2) *L Paxton Test Positive Test 08/09/20 10:15 Uric Acid 5.4 MG/DL (2.6-7.2) Phosphorus Level 4.3 MG/DL (2.5-4.9) Magnesium Level 1.4 MG/DL (1.8-2.4) L Troponin I 0.239 ng/mL (0.000-0.056) Microbiology Date/Time Source Procedure Growth Status 08/08/20 19:00 Urine,Clean Catch Urine Culture - Preliminary NO GROWTH Resulted 08/08/20 18:53 Nasopharynx SARS-CoV-2 RdRp Gene Assay - Final Complete Height (Feet): 5 Height (Inches): 7.00 Weight (Pounds): 150 Medications Current Medications Medications (Trade) Dose Ordered Sig/Angelina Route PRN Reason Start Time Stop Time Status Last Admin Dose Admin Albumin Human 100 ml @ 100 mls/hr Q6H PRN IV For hypotension 08/09/20 00:00 11/07/20 00:00 08/09/20 00:18 Albuterol/ Ipratropium (Albuterol/ Ipratropium) 3 ml Q6HRT HHN 08/09/20 01:00 08/14/20 00:59 08/09/20 07:27 Dextrose 1,000 ml @ 150 mls/hr Q6H40M IV 08/08/20 20:15 09/07/20 20:14 08/09/20 06:30 Heparin Sodium (Porcine) (Heparin 5000 units/ml) 5,000 units EVERY 8 HOURS SUBQ 08/08/20 22:00 09/22/20 21:59 UNV Pantoprazole (Protonix) 40 mg EVERY 12 HOURS IVP 08/09/20 09:00 09/08/20 08:59 08/09/20 08:23 Piperacillin Sod/ Tazobactam Sod 3.375 gm/Sodium Chloride 110 ml @ 220 mls/hr Q8H IVPB 08/09/20 00:00 08/16/20 00:00 08/09/20 08:23 Vancomycin HCl ([facility] pharmacy to dose) 1 ea DAILY PRN MISC Per rx protocol 08/08/20 20:15 09/07/20 20:14 Assessment/Plan Problem List: (1) Advanced dementia ICD Codes: F03.90 - Unspecified dementia without behavioral disturbance SNOMED: 70837927 (2) Failure to thrive SNOMED: 12443777 (3) Wounds, multiple ICD Codes: T07.XXXA - Unspecified multiple injuries, initial encounter SNOMED: 20194769, 601170088 (4) Pancytopenia ICD Codes: D61.818 - Other pancytopenia SNOMED: 664447609 (5) UTI (urinary tract infection) ICD Codes: N39.0 - Urinary tract infection, site not specified SNOMED: 55451456 (6) Abnormal LFTs ICD Codes: R94.5 - Abnormal results of liver function studies SNOMED: 116180512 (7) Acute renal failure ICD Codes: N17.9 - Acute kidney failure, unspecified SNOMED: 62838937 Qualifiers: Qualified Codes: N17.9 - Acute kidney failure, unspecified (8) Hypernatremia ICD Codes: E87.0 - Hyperosmolality and hypernatremia SNOMED: 516751014 (9) Respiratory failure ICD Codes: J96.90 - Respiratory failure, unspecified, unspecified whether with hypoxia or hypercapnia SNOMED: 952254304 Qualifiers: Qualified Codes: J96.01 - Acute respiratory failure with hypoxia; J96.02 - Acute respiratory failure with hypercapnia (10) Pneumonia ICD Codes: J18.9 - Pneumonia, unspecified organism SNOMED: 619527261 Qualifiers: Qualified Codes: J18.9 - Pneumonia, unspecified organism (11) Lactic acid acidosis ICD Codes: E87.2 - Acidosis SNOMED: 45279107 (12) NSTEMI (non-ST elevated myocardial infarction) ICD Codes: I21.4 - Non-ST elevation (NSTEMI) myocardial infarction SNOMED: 56153380 (13) High anion gap metabolic acidosis ICD Codes: E87.2 - Acidosis SNOMED: 09627238 (14) Sepsis Assessment & Plan: 60M septic in ICU on pressors DNR/DNI but intubated on support lft's abnormal US noted ? acute brandy given condition, code status and prognosis do not recommend any acute surgical intervention at this time. npo iv fluids iv abx supportive care trend labs thank you Liver: Liver 16 cm No intrahepatic bile duct dilation. Gallbladder: Gallbladder sludge and stones, distention, and pericholecystic fluid, or mild wall thickening; correlate with presentation to exclude acute cholecystitis. Common bile duct: Unremarkable as visualized. No stones. No dilation. Pancreas: Unremarkable as visualized. Kidneys: Left kidney 10.3 cm Right kidney 10.2 cm No stones. No hydronephrosis. Spleen: Unremarkable. No splenomegaly. 8 cm Aorta: Aorta 2 cm No aneurysm. Inferior vena cava: Unremarkable. Free fluid: Ascites. Pleural space: Bilateral pleural effusions. Other findings: GB wall 0.1-04 cm, measurement felt to be spuriously. IMPRESSION: 1. Gallbladder sludge and stones, distention, and pericholecystic fluid, or mild wall thickening; correlate with presentation to exclude acute cholecystitis. 2. Bilateral pleural effusions. Ascites. 3. Otherwise no acute abnormality to explain patient presentation. 4. If there is further concern, recommend CT with IV contrast. ICD Codes: A41.9 - Sepsis, unspecified organism SNOMED: 66736370 [place] Aug 09, 2020 11:51
--- NOTE | 2020-08-09 13:00 | NUR ---
NURSE NOTES: Post mortem care done.
--- NOTE | 2020-08-09 14:58 | Emergency Room Report ---
History of Present Illness General Chief Complaint: Altered Mental Status Source: Medical Record, PMD Present Illness Allergies: Coded Allergies: No Known Allergies (Unverified , 08/08/20) COVID-19 Screening Contact w/high risk pt: No Experienced COVID-19 symptoms?: Yes COVID-19 Testing performed ELECTRONICS WARFARE TECHNICIAN: No Nursing Documentation-PMH Hx Asthma: Yes History Of Psychiatric Problem: Yes - schizoaffective disorder, Physical Exam Vital Signs Date Time Temp Pulse Resp B/P (MAP) Pulse Ox O2 Delivery O2 Flow Rate FiO2 08/08/20 18:09 97.5 143 16 96/55 (69) 82 Ambu-Bag 08/08/20 18:41 100 08/08/20 19:55 15.0 Medical Decision Making Diagnostic Impression: Primary Impression: Respiratory failure Qualified Codes: J96.01 - Acute respiratory failure with hypoxia; J96.02 - Acute respiratory failure with hypercapnia Additional Impressions: High anion gap metabolic acidosis Acute renal failure Qualified Codes: N17.9 - Acute kidney failure, unspecified Lactic acid acidosis Hypernatremia NSTEMI (non-ST elevated myocardial infarction) Pneumonia Qualified Codes: J18.9 - Pneumonia, unspecified organism ER Course I was called to the ICU to pronounce this patient. Patient was made DNR. Patient lost pulse at 11:30 AM. I evaluated patient. No pulse. No palpable rhythm on monitor. No breath sounds. Last Vital Signs Date Time Temp Pulse Resp B/P (MAP) Pulse Ox O2 Delivery O2 Flow Rate FiO2 08/09/20 11:30 0 0 08/09/20 11:00 38/18 (25) 08/09/20 10:45 100 08/09/20 10:45 60 08/09/20 08:00 100.0 08/09/20 08:00 Mechanical Ventilator 08/08/20 23:00 15.0 Status: worsened Disposition: Condition: Referrals: Darek Mendez M.D. (PCP) Vitor Wang MD Aug 09, 2020 14:58
--- NOTE | 2020-08-09 19:56 | Cardiology Report ---
APPROVED REPORT EKG Measurement Heart [id number] <Conclusion> Accelerated Junctional rhythm Nonspecific T wave abnormality Abnormal ECG
--- NOTE | 2020-08-10 14:33 | NUR ---
CASE MANAGEMENT: Faxed clinical info (face sheet /H&P/ ER MD notes/ progress notes 08-09/ imaging reports) to [facility] @ [phone].
--- NOTE | 2020-08-11 15:13 | Discharge Summary ---
Discharge Summary Discharge Summary _ SUMMARY DATE OF ADMISSION: 08/08/2020 DATE OF EXPIRATION: 08/09/2020 REASON FOR ADMISSION: 60 years old male, resident of senior living facility , with past medical history of advanced dementia , asthma , nonverbal at baseline , brought in by paramedics for evaluation of respiratory distress , which was noted at the facility. Upon arrival patient was intubated. Work-up in emergency room revealed significant dehydration with hypernatremia . Per discussion with Dr. Mendez , the patient primary care provider at [facility], patient was not taking orals for some time. Decision was made not to place any feeding tube or escalate care any further. Ethics were involved, and patient was transitioned to hospice services and comfort care. Patient admitted to ICU for further management CONSULTANTS: business executive Dr Holliday surgery Dr. Bay [facility]SE: Patient admitted to ICU. Ventilator support and pulmonary toilet provided. Ventilator settings adjusted based on ABG results. Patient started on broad-spectrum antibiotic and aggressive IV hydration. At the time of this dictation , blood cultures show preliminary growth of Staph aureus. Urine culture also show growth of Staph aureus. Troponin was trending . DVT prophylaxis with heparin subcutaneously provided / Volumes were closely monitored . Center Receptionist seen and evaluated the patient. Patient was made DNAR status without escalation of care. Abdominal ultrasound revealed gallbladder sludge and stones, distention, and pericholecystic fluid, or mild wall thickening. Surgeon seen and evaluated patient. Patient might have a possible cholecystitis , but given patient presentation and DNAR status, he did not recommend any surgical intervention. GI prophylaxis provided. Plan was to extubate patient in few days or consider palliative extubation if unable to extubate. Patient condition was rapidly deteriorating. Late morning 1017 he went to asystole. Patient was subsequently pronounced at 11:30 AM 08/09. Cause of : cardiopulmonary arrest FINAL DIAGNOSES: Sepsis with shock Staph aureus bacteremia ( likely due to UTI) Staph aureus UTI Acute hypoxemic respiratory failure requiring intubation Possible pneumonia Acute kidney injury Hypernatremia Elevated troponin , possible NSTEMI Advanced dementia Pancytopenia Elevated LFT Electrolyte imbalance Diana Vera NP Aug 11, 2020 15:13
== END 2020-08-09 11:30 | disposition expired | DRG 720 ==
LOC: EDBD 18:05 → EMR 18:30 → ICU 20:40 → EDBEDREQ 22:14
PROC: 5A1935Z Respiratory Ventilation, Less than 24 Consecutive Hours (ICD-10-PCS; principal; 2020-08-08)
PROC: 0BH17EZ Insertion of Endotracheal Airway into Trachea, Via Natural or Artificial Opening (ICD-10-PCS; 2020-08-08)
DX: A41.9 Sepsis, unspecified organism (principal); R65.21 Severe sepsis with septic shock; N39.0 Urinary tract infection, site not specified; B95.61 Methicillin susceptible Staphylococcus aureus infection as the cause of diseases classified elsewhere; J96.01 Acute respiratory failure with hypoxia; N17.9 Acute kidney failure, unspecified; E87.0 Hyperosmolality and hypernatremia; E86.0 Dehydration; I21.4 Non-ST elevation (NSTEMI) myocardial infarction; F03.90 Unspecified dementia, unspecified severity, without behavioral disturbance, psychotic disturbance, mood disturbance, and anxiety; D61.818 Other pancytopenia; R79.89 Other specified abnormal findings of blood chemistry; E87.8 Other disorders of electrolyte and fluid balance, not elsewhere classified; F25.9 Schizoaffective disorder, unspecified; L89.312 Pressure ulcer of right buttock, stage 2
CPT/HCPCS: 31500; 36415; 71045; 76700; 80053; 81003; 82040; 82248; 82550; 82553; 82728; 82803; 82962; 83605; 83615; 83690; 83735; 83880; 84100; 84443; 84484; 84550; 85007; 85025; 85610; 85730; 86140; 86900; 86901; 87040; 87081; 87086; 93005; 94002; 94003; 96361; 96365; 96367; 99291; 99292; J7030; J7620; U0002